=== PATIENT | female | born 1975 | race Caucasian/White ===

== ENCOUNTER 2018-10-23 12:50 | Emergency (ER) | payer BC ==
--- NOTE | 2018-10-23 13:47 | UC ---
Complaint Female HPI - HPI Summary HPI Summary: This patient is a 43-year-old female that has had increased vaginal bleeding for the past 3 months. She has had heavier than normal vaginal bleeding and has had bleeding approximately every 2 weeks instead of every 4. Headedness. She was seen by her LOCAL [place] TRUCK DRIVER in July. In the past she has had uterine polyps. Currently she is not having any pelvic pain. His had negative tests at home. She states that her vaginal discharge has been more mucousy than normal. She denies any fever or chills. - History Of Current Complaint Chief Complaint: UCGU Stated Complaint: PERSONAL Time Seen by Provider: 10/23/18 13:26 Hx Obtained From: Patient Hx Last Menstrual Period: 10/03/18 Onset/Duration: Gradual Onset Timing: Lasting Weeks Severity Initially: Mild Severity Currently: Moderate Pain Intensity: 0 Pain Scale Used: 0-10 Numeric Character: Not Applicable Aggravating Factor(s): Nothing Associated Signs And Symptoms: Positive: Vaginal Bleeding/Discharge - Allergies/Home Medications Allergies/Adverse Reactions: Allergies Allergy/AdvReac Type Severity Reaction Status Date / Time No Known Allergies Allergy Verified 10/23/18 13:19 Home Medications: Home Medications Cholecalciferol (Vitamin D3) [Vitamin D3] 1,000 unit PO 10/23/18 [History] Multivitamin [Multivitamins] 1 cap PO 10/23/18 [History] PMH/Surg Hx/FS Hx/Imm Hx Previously Healthy: Yes - Surgical History Surgical History: Yes Surgery Procedure, Year, and Place: - Family History Known Family History: Positive: Hypertension - Social History Alcohol Use: None Substance Use Type: None Smoking Status (MU): Never Smoked Tobacco Review of Systems All Other Systems Reviewed And Are Negative: Yes Constitutional: Positive: Fatigue Skin: Positive: Negative Eyes: Positive: Negative ENT: Positive: Negative Respiratory: Positive: Negative Cardiovascular: Positive: Negative Gastrointestinal: Positive: Negative Genitourinary: Positive: Other - vaginal bleeding Motor: Positive: Negative Neurovascular: Positive: Negative Musculoskeletal: Positive: Negative Neurological: Positive: Negative Psychological: Positive: Negative Physical Exam Triage Information Reviewed: Yes Appearance: Well-Appearing, No Pain Distress, Well-Nourished Vital Signs: Initial Vital Signs Temp 99.0 F 10/23/18 13:05 Pulse 83 10/23/18 13:05 Resp 18 10/23/18 13:05 BP 118/76 10/23/18 13:05 Pulse Ox 99 10/23/18 13:05 Vital Signs Reviewed: Yes Eyes: Positive: Conjunctiva Clear ENT: Positive: Hearing grossly normal. Negative: Nasal congestion, Nasal drainage, Trismus, Muffled voice Neck: Positive: Supple Respiratory: Positive: Lungs clear, Normal breath sounds, No respiratory distress, No accessory muscle use Cardiovascular: Positive: RRR, No Murmur Abdomen Description: Positive: Nontender, No Organomegaly, Soft. Negative: CVA Tenderness (R), CVA Tenderness (L) Bowel Sounds: Positive: Present Pelvic Exam: Positive: Other - deferred/recently had exam by her dollyman Musculoskeletal: Positive: ROM Intact, No Edema Neurological: Positive: Alert Psychological Exam: Normal Skin Exam: Normal Diagnostics - Radiology No standard instances Radiology Interpretation Completed By: Radiologist Summary of Radiographic Findings: THICKENED, HETEROGENEOUS ENDOMETRIUM WITH A POLYPOID LESION ALONG THE LOWER UTERINE. SEGMENT. Complaint Female Dx - Differential Dx/Diagnosis Provider Diagnosis: Uterine polyp, Endometrial thickening on ultrasound, Menometrorrhagia Discharge - Sign-Out/Discharge Documenting (check all that apply): Patient Departure All imaging exams completed and their final reports reviewed: Yes - Discharge Plan Condition: Stable Disposition: HOME Patient Education Materials: Menorrhagia (ED), Endometrial Polyps (DC) Additional Instructions: a blood count is pending your ultrasound showed: THICKENED, HETEROGENEOUS ENDOMETRIUM WITH A POLYPOID LESION ALONG THE LOWER UTERINE SEGMENT. please call your dollyman to make an appt - Billing Disposition and Condition Condition: STABLE Disposition: Home
[2018-10-23 18:57] LABS: ABS Basophils 0.1 10^3/ul (0-0.2); ABS Eosinophils 0.1 10^3/ul (0-0.6); ABS Lymphocytes 1.4 10^3/ul (1.0-4.8); ABS Monocytes 0.3 10^3/ul (0-0.8); ABS Neutrophils 3.2 10^3/ul (1.5-7.7); ABS Nucleated RBC 0 10^3/ul; Eosinophil % 2.2 %; Hematocrit 34 % (35-47); Lymphocyte % 27.2 %; Mean Corpuscular HGB Conc 33 g/dl (31-36); Mean Corpuscular Hemoglobin 26 pg (27-31); Mean Corpuscular Volume 78 fL (80-97); Mean Platelet Volume 7.3 fL (7.4-10.4); Nucleated Red Blood Cells % 0; Platelet Count 342 10^3/ul (150-450); Red Blood Count 4.31 10^6/ul (4.00-5.40); Red Cell Distribution Width 15 % (10.5-15)
--- NOTE | 2018-10-24 07:14 | UC ---
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 Course/Dx - Diagnoses Provider Diagnoses: Uterine polyp, Endometrial thickening on ultrasound, Menometrorrhagia Discharge - Sign-Out/Discharge Documenting (check all that apply): Post-Discharge Follow Up All imaging exams completed and their final reports reviewed: Yes - Discharge Plan Condition: Stable Disposition: HOME Patient Education Materials: Menorrhagia (ED), Endometrial Polyps (DC) Referrals: No Primary Care Phys,NOPCP [Primary Care Provider] - Additional Instructions: a blood count is pending your ultrasound showed: THICKENED, HETEROGENEOUS ENDOMETRIUM WITH A POLYPOID LESION ALONG THE LOWER UTERINE SEGMENT. please call your theater teacher to make an appt - Billing Disposition and Condition Condition: STABLE Disposition: Home
== END 2018-10-23 14:50 | disposition home or self-care (01) ==
LOC: UCEAST 12:50
DX: N84.0 Polyp of corpus uteri (principal); R93.89 Abnormal findings on diagnostic imaging of other specified body structures; N92.1 Excessive and frequent menstruation with irregular cycle; R53.83 Other fatigue
CPT/HCPCS: 36415; 76830; 84702; 85025; 99201; G0463

== ENCOUNTER 2019-06-04 12:50 | Emergency (ER) | payer BC ==
[2019-06-04 15:06] VITALS: BP 114/80
--- NOTE | 2019-06-04 16:50 | UC ---
Abdominal Pain Female HPI - HPI Summary HPI Summary: 3-4 WEEKS OF INTERMITTENT NAUSEA/VOMITING AND CRAMPY ABDOMINAL PAIN/DIARRHEA. PATIENT STATES SYMPTOMS ARE WORSE AFTER EATING AND OCCUR ALMOST EVERY DAY. NO FEVER. - History of Current Complaint Chief Complaint: UCAbdominalPain Stated Complaint: ABD PAIN VOMITING DIARRHEA HEADACHE Time Seen by Provider: 06/04/19 15:12 Hx Obtained From: Patient Hx Last Menstrual Period: 05/12/19 Onset/Duration: Lasting Weeks, Still Present Severity Initially: Moderate Severity Currently: Moderate Pain Intensity: 2 Pain Scale Used: 0-10 Numeric Location: Diffuse Radiates: No Character: Cramping Aggravating Factor(s): Food Associated Signs and Symptoms: Positive: Nausea, Vomiting, Diarrhea. Negative: Fever, Chest Pain, Back Pain, Constipation, Blood in Stool, Urinary Symptoms, Decreased Appetite Allergies/Adverse Reactions: Allergies Allergy/AdvReac Type Severity Reaction Status Date / Time No Known Allergies Allergy Verified 06/04/19 13:07 PMH/Surg Hx/FS Hx/Imm Hx Previously Healthy: Yes - Surgical History Surgical History: Yes Surgery Procedure, Year, and Place: - Family History Known Family History: Positive: Hypertension - Social History Alcohol Use: None Substance Use Type: None Smoking Status (MU): Never Smoked Tobacco Review of Systems All Other Systems Reviewed And Are Negative: Yes Constitutional: Positive: Negative Respiratory: Positive: Negative Cardiovascular: Positive: Negative Gastrointestinal: Positive: Abdominal Pain, Vomiting, Diarrhea, Nausea Genitourinary: Positive: Negative Physical Exam Triage Information Reviewed: Yes Appearance: Well-Appearing, No Pain Distress, Well-Nourished Vital Signs: Initial Vital Signs Temp 98 F 06/04/19 13:03 Pulse 91 06/04/19 13:03 Resp 18 06/04/19 13:03 BP 118/82 06/04/19 13:03 Pulse Ox 100 06/04/19 13:03 Laboratory Tests 06/04/19 06/04/19 15:45 15:45 WBC 6.7 RBC 4.68 Hgb 13.4 Hct 40 MCV 85 MCH 29 MCHC 34 RDW 15 Plt Count 323 MPV 7.8 Neut % (Auto) 71.4 Lymph % (Auto) 22.0 Reeves % (Auto) 4.9 Eos % (Auto) 0.6 Baso % (Auto) 1.1 Absolute Neuts (auto) 4.8 Absolute Lymphs (auto) 1.5 Absolute Monos (auto) 0.3 Absolute Eos (auto) 0.0 Absolute Basos (auto) 0.1 Absolute Nucleated RBC 0.0 Nucleated RBC % 0.0 Sodium 138 Potassium 4.0 Chloride 103 Carbon Dioxide 29 Anion Gap 6 BUN 8 Creatinine 0.63 Est GFR ( Amer) 125.4 Est GFR (Non-Af Amer) 103.6 BUN/Creatinine Ratio 12.7 Glucose 88 Calcium 9.6 Total Bilirubin 0.60 AST 13 ALT 11 Alkaline Phosphatase 107 H Total Protein 7.1 Albumin 5.0 Globulin 2.1 Albumin/Globulin Ratio 2.4 TSH 0.95 Vital Signs Reviewed: Yes Eyes: Positive: Conjunctiva Clear ENT: Positive: Hearing grossly normal Neck: Positive: Supple Respiratory Exam: Normal Cardiovascular Exam: Normal Abdomen Description: Positive: Soft, Other: - MILDLY TENDER RLQ. NO REBOUND OR RIGIDITY. Negative: CVA Tenderness (R), CVA Tenderness (L), Distended, Guarding Bowel Sounds: Positive: Present Musculoskeletal: Positive: No Edema Neurological: Positive: Alert Psychological: Positive: Age Appropriate Behavior Skin: Negative: Rashes Abd Pain Female Course/Dx - Course Course Of Treatment: UNCLEAR ETIOLOGY OF PT SYMPTOMS. SUSPECT A DIETARY SENSITIVITY. ADVISED TO KEEP A FOOD AND SYMPTOM DIARY TO SEE IF SHE CAN IDENTIFY A TRIGGER FOOD. SHE MAY ALSO CONSIDER SYSTEMATIC DIETARY ELIMINATION. FOLLOW-UP WITH GI. CBC, CMP AND TSH DRAWN TODAY. GO TO THE ER WITHOUT FAIL IF SX WORSEN. - Differential Dx/Diagnosis Provider Diagnosis: Nausea, vomiting and diarrhea Discharge ED - Sign-Out/Discharge Documenting (check all that apply): Patient Departure All imaging exams completed and their final reports reviewed: No Studies - Discharge Plan Condition: Stable Disposition: HOME Patient Education Materials: Abdominal Pain (ED) Referrals: [facility] [Provider Group] - 2 Weeks Brandy Bedoya MD [Primary Care Provider] - If Needed Additional Instructions: UNCLEAR ETIOLOGY OF YOUR SYMPTOMS. CONSIDER A DIETARY TRIGGER/FOOD SENSITIVITY. KEEP A FOOD AND SYMPTOM JOURNAL TO SEE IF YOU CAN DISCOVER A PATTERN. YOU CAN ALSO TRY SYSTEMATIC DIETARY ELIMINATION. FOLLOW-UP WITH GI IN 2 WEEKS. BLOOD COUNT, METABOLIC PANEL AND THYROID BLOOD TESTS DRAWN TODAY. WE WILL CALL YOU WITH ANY ABNORMAL RESULTS. GO TO THE ER WITHOUT FAIL IF YOU DEVELOP WORSENING PAIN, FEVER, INABILITY TO KEEP ANYTHING DOWN, BLOOD IN THE STOOL/VOMIT OR ANY OTHER CONCERNING SYMPTOMS. ABDOMINAL PAIN: There are many causes of abdominal pain. Pain can mean a serious problem requiring surgery (such as appendicitis), or an innocent problem which goes away on its own (such as a viral infection). Often, time must pass to determine the cause of pain. The physician does not feel that hospitalization is necessary, at present. Conditions may change, however, within the next 24 hours. GO TO THE ER WITHOUT FAIL IF ANY OF THE FOLLOWING OCCUR: 1) Pain which becomes more severe, steady, or becomes concentrated in one specific area. Also, pain which is more severe with movement or coughing. 2) Vomiting which persists or becomes more frequent. 3) Blood in the vomitus, urine, or bowel movements. Blood in the stool may have a tarry or black appearance. 4) Shaking chills or fever greater than 100 degrees F. 5) The abdomen becomes more distended or swollen. 6) Bowel movements cease. 7) Failure to improve as expected. OBSERVATION FOR APPENDICITIS: At this time, the abdominal pain does not seem to be appendicitis. Our next "test" will be passage of time. If you have early appendicitis, signs will appear to help us make the diagnosis. Most of the time, the pain goes away. In these cases, the pain is usually due to a virus in the lymph glands near the appendix, or due to an ovarian cyst or ovulation. Unless the pain is gone, you should come back for a recheck. This is usually done in 8 to 12 hours. Be sure you understand your follow-up instructions. GO TO THE ER IMMEDIATELY IF: (1) the pain becomes much more severe and sharply increases with movement or coughing, (2) vomiting becomes frequent, (3) there is blood in the vomit, urine, or bowel movements, (4) there are shaking chills or fever, or (5) the abdomen becomes more distended or swollen. - Billing Disposition and Condition Condition: STABLE Disposition: Home
[2019-06-04 19:20] LABS: ABS Basophils 0.1 10^3/ul (0-0.2); ABS Lymphocytes 1.5 10^3/ul (1.0-4.8); ABS Monocytes 0.3 10^3/ul (0-0.8); ABS Neutrophils 4.8 10^3/ul (1.5-7.7); Eosinophil % 0.6 %; Hematocrit 40 % (35-47); Hemoglobin 13.4 g/dL (12.0-16.0); Mean Corpuscular HGB Conc 34 g/dL (31-36); Mean Corpuscular Hemoglobin 29 pg (27-31); Mean Corpuscular Volume 85 fL (80-97); Mean Platelet Volume 7.8 fL (7.4-10.4); Platelet Count 323 10^3/uL (150-450); Red Blood Count 4.68 10^6 /uL (3.70-4.87); Red Cell Distribution Width 15 % (10-15); White Blood Count 6.7 10^3/uL (3.5-10.8)
[2019-06-04 19:45] LABS: TSH (Thyroid Stimulating Horm) 0.95 mcIU/mL (0.34-5.60)
[2019-06-04 21:36] LABS: Calcium 9.6 mg/dL (8.6-10.3); Total Bilirubin 0.6 mg/dL (0.2-1.0)
[2019-06-04 21:42] LABS: Albumin/Globulin Ratio 2.4 (1-3); BUN/Creatinine Ratio 12.7 (8-20); EGFR African American 125.4 (>60); EGFR Non-African American 103.6 (>60); Globulin 2.1 g/dL (2-4); Total Protein 7.1 g/dL (6.4-8.9)
--- NOTE | 2019-06-05 07:51 | UC ---
- Progress Note Progress Note: Laboratory results come back from June 04, 2019. His CBC CMP and TSH. The only lab value not within normal limits was the alkaline phosphatase at 107. Normal is 34 and 104. Nursing to call patient inform them of the results. Follow-up with her primary care physician for reevaluation of the alkaline phosphatase. Patient was here with abdominal complaint and if the patient's gotten worse and cannot get into her primary care physician that she get reevaluation in the emergency department. Course/Dx - Diagnoses Provider Diagnoses: Nausea, vomiting and diarrhea Discharge ED - Sign-Out/Discharge Documenting (check all that apply): Patient Departure All imaging exams completed and their final reports reviewed: No Studies - Discharge Plan Condition: Stable Disposition: HOME Patient Education Materials: Abdominal Pain (ED) Referrals: [facility] [Provider Group] - 2 Weeks Brandy Bedoya MD [Primary Care Provider] - If Needed Additional Instructions: UNCLEAR ETIOLOGY OF YOUR SYMPTOMS. CONSIDER A DIETARY TRIGGER/FOOD SENSITIVITY. KEEP A FOOD AND SYMPTOM JOURNAL TO SEE IF YOU CAN DISCOVER A PATTERN. YOU CAN ALSO TRY SYSTEMATIC DIETARY ELIMINATION. FOLLOW-UP WITH GI IN 2 WEEKS. BLOOD COUNT, METABOLIC PANEL AND THYROID BLOOD TESTS DRAWN TODAY. WE WILL CALL YOU WITH ANY ABNORMAL RESULTS. GO TO THE ER WITHOUT FAIL IF YOU DEVELOP WORSENING PAIN, FEVER, INABILITY TO KEEP ANYTHING DOWN, BLOOD IN THE STOOL/VOMIT OR ANY OTHER CONCERNING SYMPTOMS. ABDOMINAL PAIN: There are many causes of abdominal pain. Pain can mean a serious problem requiring surgery (such as appendicitis), or an innocent problem which goes away on its own (such as a viral infection). Often, time must pass to determine the cause of pain. The physician does not feel that hospitalization is necessary, at present. Conditions may change, however, within the next 24 hours. GO TO THE ER WITHOUT FAIL IF ANY OF THE FOLLOWING OCCUR: 1) Pain which becomes more severe, steady, or becomes concentrated in one specific area. Also, pain which is more severe with movement or coughing. 2) Vomiting which persists or becomes more frequent. 3) Blood in the vomitus, urine, or bowel movements. Blood in the stool may have a tarry or black appearance. 4) Shaking chills or fever greater than 100 degrees F. 5) The abdomen becomes more distended or swollen. 6) Bowel movements cease. 7) Failure to improve as expected. OBSERVATION FOR APPENDICITIS: At this time, the abdominal pain does not seem to be appendicitis. Our next "test" will be passage of time. If you have early appendicitis, signs will appear to help us make the diagnosis. Most of the time, the pain goes away. In these cases, the pain is usually due to a virus in the lymph glands near the appendix, or due to an ovarian cyst or ovulation. Unless the pain is gone, you should come back for a recheck. This is usually done in 8 to 12 hours. Be sure you understand your follow-up instructions. GO TO THE ER IMMEDIATELY IF: (1) the pain becomes much more severe and sharply increases with movement or coughing, (2) vomiting becomes frequent, (3) there is blood in the vomit, urine, or bowel movements, (4) there are shaking chills or fever, or (5) the abdomen becomes more distended or swollen. - Billing Disposition and Condition Condition: STABLE Disposition: Home
== END 2019-06-04 16:03 | disposition home or self-care (01) ==
LOC: UCEAST 12:50
DX: R11.2 Nausea with vomiting, unspecified (principal); R19.7 Diarrhea, unspecified
CPT/HCPCS: 36415; 80053; 84443; 85025; 99211; G0463